=== PATIENT | female | born 1990 | race Caucasian/White ===

== ENCOUNTER 2018-01-29 10:01 | Observation (INO) | payer MEDICAID ==
[2018-01-29] MEDS ORDERED: LIDOCAINE 2% (SDV) 5 ML INJ (12:38)
[2018-01-29] MEDS ORDERED: PROPOFOL 20 ML ×2 (12:38→13:00)
[2018-01-29] MEDS ORDERED: CEFAZOLIN 1 GM INJ (12:38)
[2018-01-29] MEDS ORDERED: ONDANSETRON 4 MG INJ (12:39)
[2018-01-29] MEDS ORDERED: DEXAMETHASONE 4 MG/ML 1 ML INJ (12:39)
[2018-01-29] MEDS ORDERED: FAMOTIDINE 20 MG INJ (12:39)
[2018-01-29] MEDS ORDERED: MIDAZOLAM 1 MG/ML 2 ML INJ (12:39)
[2018-01-29] MEDS ORDERED: FENTAnyl 50 MCG/ML VIAL (12:40)
[2018-01-29] MEDS ORDERED: KETOROLAC 30 MG INJ (12:59)
[2018-01-29] MEDS ORDERED: SUGAMMADEX SODIUM 200 MG/2 ML VIAL IV (13:30)
[2018-01-29] MEDS ORDERED: MEPERIDINE 25 MG INJ IV (13:30)
[2018-01-29] MEDS ORDERED: ONDANSETRON 4 MG INJ IV (13:30)
[2018-01-29] MEDS ORDERED: morphine (1 MG/ML) 10ML SYRINGE IV (13:30)
[2018-01-29] MEDS ORDERED: DIPHENHYDRAMINE 50 MG INJ IV (13:30)
[2018-01-29] MEDS: BUPIVACAINE 0.25%/EPI (MDV) 50 ML VIAL INJ (14:07)
[2018-01-29] MEDS: FENTAnyl 50 MCG/ML VIAL IV (14:07)
[2018-01-29] MEDS: HYDROmorphONE 1 MG/5 ML IV SYRINGE IV (14:46)
[2018-01-29] MEDS: KETOROLAC 30 MG INJ IV (16:25)
[2018-01-29] MEDS: OXYCODONE/ACETAMINOPHEN (5/325) TAB PO ×2 (18:26→23:22)
[2018-01-29] MEDS ORDERED: IBUPROFEN 600 MG TAB PO (19:00)
[2018-01-29] MEDS ORDERED: BUTORPHANOL 2 MG INJ IV (19:00)
[2018-01-29] MEDS: ONDANSETRON 4 MG INJ IV (22:01)
[2018-01-30] MEDS: OXYCODONE/ACETAMINOPHEN (5/325) TAB PO ×2 (06:36→11:23)
== END 2018-01-30 16:30 | disposition home or self-care (01) ==
LOC: SDS 10:01 → PP2 01-30 02:59 → SDS 18:44 → PP2 18:44
DX: Z30.2 Encounter for sterilization (principal)
CPT/HCPCS: 58600; 88302; G0378